=== PATIENT | female | born 1945 | race Caucasian/White ===

== ENCOUNTER 2018-01-08 17:42 | Emergency (ER) | payer OTHER, MEDICAID ==
[~2018-01-08] VITALS: Ht 157.5 cm; Wt 61.7 kg
[2018-01-08 17:44] VITALS: Ht 157.5 cm; Wt 61.7 kg
[2018-01-08 21:31] VITALS: BP 145/79
== END 2018-01-08 21:31 | disposition home or self-care (01) ==
LOC: ED 17:42
DX: S60.212A Contusion of left wrist, initial encounter (principal); S80.02XA Contusion of left knee, initial encounter; I10 Essential (primary) hypertension; E11.9 Type 2 diabetes mellitus without complications; W01.0XXA Fall on same level from slipping, tripping and stumbling without subsequent striking against object, initial encounter; Y93.89 Activity, other specified; Y92.89 Other specified places as the place of occurrence of the external cause; Y99.8 Other external cause status
CPT/HCPCS: Q0092

== ENCOUNTER 2020-04-17 04:54 | Emergency (ER) | payer OTHER, MEDICAID ==
[~2020-04-17] VITALS: Ht 160 cm; Wt 63.5 kg
[~2020-04-17 04:54] MED LIST: ASPIRIN FOR CHI81 M1 PO; ATORVASTATIN CA20 M1 PO; AVAPRO75 MG PO; CALCIUM 1,0001 EACH PO; LANTUS SOLOS100 U/M1; LOVENOX30 MG/0.3 IJ; NORCO1 TA2 PO
[2020-04-17 05:16] VITALS: Ht 160 cm; Wt 63.5 kg
[2020-04-17 06:23] LABS: BASOPHIL % 0.9 % (0.2-1.3); PLATELET COUNT 156 x10^3mcL (179-408)
[2020-04-17 06:24] LABS: RED CELL DISTRIBUTION WIDTH 15.6 % (12.3-17.7)
[2020-04-17 07:01] LABS: CALCIUM 9.6 mg/dL (8.5-10.1); CARBON DIOXIDE 24.2 mmol/L (21-32); CHLORIDE SERUM 106 mmol/L (98-107); SODIUM SERUM 141 mmol/L (136-145)
[2020-04-17 08:12] LABS: ALKALINE PHOSPHATASE 93 U/L (46-116); ALT/SGPT 16 U/L (14-59); AST/SGOT 6 U/L (15-37); BILIRUBIN TOTAL 0.56 mg/dL (0.20-1.00); GLUCOSE SERUM 221 mg/dL (74-106); TOTAL PROTEIN, SERUM 7.3 g/dL (6.4-8.2)
[2020-04-17 08:15] LABS: ALBUMIN 3.1 g/dL (3.4-5.0)
[2020-04-17 08:24] LABS: CREATININE SERUM 1.3 mg/dL (0.6-1.0)
[2020-04-17 11:05] VITALS: BP 182/76
== END 2020-04-17 11:05 | disposition home or self-care (01) ==
LOC: ED 04:54
PROVIDERS: Emergency Medicine
DX: D69.6 Thrombocytopenia, unspecified (principal); N17.9 Acute kidney failure, unspecified; E11.65 Type 2 diabetes mellitus with hyperglycemia; N39.0 Urinary tract infection, site not specified; B37.3 Candidiasis of vulva and vagina
CPT/HCPCS: 82962; J0696; J7120